=== PATIENT | female | born 1980 ===

== ENCOUNTER 2017-12-20 12:45 | Emergency (ER) | payer SELFPAY ==
[~2017-12-20] VITALS: Ht 165.1 cm; Wt 81.8 kg
[2017-12-20 13:12] VITALS: BP 128/77
== END 2017-12-20 14:52 | disposition left against medical advice (07) ==
LOC: ER 12:47
DX: K08.89 Other specified disorders of teeth and supporting structures (principal); Z53.21 Procedure and treatment not carried out due to patient leaving prior to being seen by health care provider